=== PATIENT | female | born 1995 | race Hispanic/Latino ===

== ENCOUNTER 2016-11-20 12:00 | Emergency (ER) | payer MEDICAID, OTHER ==
[~2016-11-20] VITALS: Ht 162.6 cm; Wt 63.6 kg
[2016-11-20 12:12] VITALS: BP 109/73; RESP 15; O2SAT 100
--- NOTE | 2016-11-20 12:12 | ED.REPORT ---
HPI-Facial Injury Date of Service Nov 20, 2016 ED Provider: Dr. Roberts A 21 year old female with a history of asthma, depression, and suicidal ideations presents to the ED complaining of swollen throat onset 1 month ago. The patient thinks that it is strep throat but has not seen a doctor to be tested for that. Associated symptoms include pain with eating or drinking. The patient denies any cough or fever. The patient did not take Tylenol, Ibuprofen or any medicines at home to treat her symptoms. She does report using an unspecified "natural" treatment that got rid of white spots that were on her throat. She reports that her sister had an illness that may have been strep throat 1 month ago. The patient reports no pertinent medical history. Nursing Notes Stated Complaint: POSSIBLE STREP THROAT Chief Complaint: ENT & Mouth Nursing Notes Reviewed: Yes Allergies: Coded Allergies: ketorolac tromethamine (Verified Allergy, Intermediate, VOMITING, ORAL FORM, 11/20/16) ORAL FORM MAKES HER VOMIT codeine (Verified Adverse Reaction, Intermediate, SWEATING, NAUSEA, ) propoxyphene napsylate (Verified Adverse Reaction, Intermediate, Nausea, ) No Active Prescriptions or Reported Meds General Time Seen by Provider: 12:12 Chief Complaint Other (Swollen throat) Hx Obtained From: Patient Arrived By: Walk-in Onset Occurred: More than a week ago... (1 month ago) Symptom Duration: Since onset Severity: Current: Moderate Severity: Maximum: Moderate Recent Healthcare: No recent doctor visit Similar Sx Previous: No Past Medical History Past Medical History Depression - hx of suicidal ideations ADD Rh Positive Reports: Asthma Past Surgical History none reported. 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 Constitutional: Denies: Fever Ears / Nose / Throat: Reports: Throat swelling Complete sys rev & neg: except as marked. Respiratory: Denies: Non-productive cough Physical Exam Initial Vital Signs Vital Signs (First) Date Time Temp Pulse Resp B/P Pulse Ox O2 Delivery O2 Flow Rate FiO2 11/20/16 12:12 37.3 85 15 109/73 100 Room Air Initial VS: Reviewed Head / Eyes: Atraumatic, Normocephalic ENT: Airway patent tonsillar hypertrophy and erythema. No uvular deviation. Neck: Full range of motion Neurologic: Oriented X3, Speech NL General/Constitutional: Awake, Alert Respiratory / Chest: Atraumatic, Breath sounds NL, Breath sounds = bilat, No respiratory distress Cardiovascular: Heart rate NL, Regular rhythm, Heart sounds NL Skin: Atraumatic, Color NL Abdomen: Atraumatic Spleen is not enlarged. Back: Atraumatic, Full range of motion Lymphadenitis: Positive: Tenderness present (tender lymphnodes.) Upper Extremity / MS: Atraumatic, Full range of motion Wrist / Hand: Atraumatic, Full range of motion Lower Extremity / Pelvis / MS: Atraumatic, Full range of motion Interpretation & Diagnostics Interpretation & Diagnostics: Strep test is negative. MONO test is negative. Lab Results Interpretation Test 11/20/16 12:34 11/20/16 12:50 Monoscreen Negative (Negative) Re-Eval/Medical Decision Med Decision/Clinical Course Med Decision/Clinical Course: Treated with Bicillin, on the off chance this is infectious. Recommended outpatient follow-up with ENT. Source of Hx: Old records Re-Evaluation/Progress : Time of Eval: 13:08 Re-Evaluation/Progress Note: Rechecked patient, explained test results, diagnosis, and plan for discharge. Patient understands and agrees with the plan. All questions addressed. Counseled Regarding: Diagnosis, Lab results, Need for follow-up, When/why to return to ED Discharge & Departure Impression: Primary Impression: Pharyngitis Disposition: Home Discharge Condition All VS Reviewed: Yes Condition: Improved Patient Instructions: Pharyngitis (ED) Additional Instructions: Your strep throat swab and your mononucleosis test were both negative. However , given the duration of your symptoms your sore throat was treated with an injection of long-acting penicillin. Call the ENT physician in the next 3-4 days if you have no improvement for a follow-up appointment. Also follow-up with your primary care doctor as needed or return to the ER. Referrals: Rebecca Camilo DO (PCP) Gustavo Baker MD Scribe Attestation Portions of this note were transcribed by Tavo Zimmerman. IDr. Roberts personally performed the history, physical exam and medical decision-making; I reviewed and confirmed the accuracy of the information in the transcribed note. Signed by: Sheryl Nuñez, 11/20/2016 1328. copies to: Gustavo Baker MD; Rebecca Camilo Timothy S DO Nov 20, 2016 12:12 Tavo Zimmerman Nov 20, 2016 12:20
[2016-11-20] MEDS ORDERED: AMOX-366 PO (13:58)
== END 2016-11-20 14:06 | disposition home or self-care (01) ==
LOC: SED 12:00
DX: J02.9 Acute pharyngitis, unspecified (principal); J45.909 Unspecified asthma, uncomplicated; F12.10 Cannabis abuse, uncomplicated; Z88.8 Allergy status to other drugs, medicaments and biological substances; Z88.5 Allergy status to narcotic agent

== ENCOUNTER 2016-11-22 21:04 | Emergency (ER) | payer OTHER ==
[~2016-11-22] VITALS: Ht 162.6 cm; Wt 18.2 kg
[~2016-11-22 21:04] MED LIST: AMOX-366 PO
[2016-11-22 21:09] VITALS: BP 127/85; PULSE 117; RESP 24; O2SAT 96
--- NOTE | 2016-11-22 21:52 | ED.REPORT ---
HPI-Abd Pain F Under 40 Date of Service Nov 22, 2016 ED Provider: Amrit Diaz MD A 21 year old female with a history of depression, ADD, and asthma presents to the ED with epigastric abdominal pain onset 1300 this afternoon. Associated symptoms include nausea and vomiting. The patient denies diarrhea, melena, hematemesis, hematochezia, dysuria, or other symptoms. She has no ill contacts. The patient was in the ED two days ago with pharyngitis. Nursing Notes Stated Complaint: SICK Chief Complaint: Female Abdominal Pain Nursing Notes Reviewed: Yes Allergies: Coded Allergies: ketorolac tromethamine (Verified Allergy, Intermediate, VOMITING, ORAL FORM, 11/22/16) ORAL FORM MAKES HER VOMIT codeine (Verified Adverse Reaction, Intermediate, SWEATING, NAUSEA, ) propoxyphene napsylate (Verified Adverse Reaction, Intermediate, Nausea, ) Scheduled Amoxicillin/Clav K 875-125 mg (Augmentin 875-125 mg) 1 Each Tablet 1 TABLET PO BID Omeprazole (Omeprazole) 20 Mg Tablet.dr 20 MG PO BID Scheduled PRN Ondansetron ODT (Ondansetron ODT) 8 Mg Tab.rapdis 8 MG PO QID PRN PRN For Nausea General Time Seen by MD: 21:51 Chief Complaint Abdominal pain Hx Obtained From: Patient Arrived By: Walk-in Sudden in Onset?: Yes Onset Occurred: 5 - 8 hours ago Symptom Duration: Since onset Location: : Epigastric Quality: Painful Severity: Current: Moderate Severity: Maximum: Moderate Associated with: Reports: Nausea, Vomiting, Denies: Diarrhea, Dysuria, Fever, Hematemesis, Hematochezia, Melena Pertinent Negative: Relieved by nothing Recent Healthcare: Recent doctor visit Past Medical History Past Medical History Depression - hx of suicidal ideations ADD Rh Positive Reports: Asthma Past Surgical History none reported. 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 Physical Exam Initial Vital Signs Vital Signs (First) Date Time Temp Pulse Resp B/P Pulse Ox O2 Delivery O2 Flow Rate FiO2 11/22/16 21:09 37.2 117 24 127/85 96 Room Air Initial VS: Reviewed Head / Eyes: Atraumatic, Normocephalic ENT: Conjunctiva normal, No scleral icterus Skin: Warm, Dry, No cyanosis Neurologic: Alert, Oriented, Nonfocal Psychiatric: Mood/affect normal, Behavior normal, Normal thought content General/Constitutional: Awake, Alert Distress / Hydration: Positive: Dehydration mild, Distress mild Behavior: Positive: Tearful Respiratory / Chest: Breath sounds NL, Breath sounds = bilat, No respiratory distress Cardiovascular: Heart rate NL, Regular rhythm, Heart sounds NL Abdomen: Soft Tenderness/Guarding/Rebound: Positive: Tender epigastric Interpretation & Diagnostics URINE DIPSTICK: 1.000 sp gravity 6 pH Trace Leukocyte Esterase Normal Glucose ++ Moderate Ketones Normal Urobilinogen ++ Bilirubin ~50 Nathan/ml URINE TEST: Negative Lab Results Interpretation Result Diagram: 11/22/16214411/22/162144 Test 11/22/16 21:45 11/22/16 23:09 White Blood Count 11.2th/mm3 (3.8-10.1) Red Blood Count 5.23mil/mm3 (3.90-5.20) Hemoglobin 14.2g/dL (12.0-15.6) Hematocrit 42.0% (35.0-46.0) Mean Corpuscular Volume 80.3fL (81-100) Mean Corpuscular Hemoglobin 27.2pg (27.0-35.0) Mean Corpuscular Hemoglobin Concent 33.8% (32.0-37.0) Red Cell Distribution Width 13.3% (12.3-15.4) Platelet Count 365bil/L (150-400) Neutrophils (%) (Auto) 85.8% (40-74) Lymphocytes (%) (Auto) 6.9% (14-46) Monocytes (%) (Auto) 6.0% (4-12) Eosinophils (%) (Auto) 0.5% (0-5) Basophils (%) (Auto) 0.4% (0-3) Sodium Level 138mEq/L (134-144) Potassium Level 4.0mEq/L (3.5-5.2) Chloride Level 96mEq/L (97-108) Carbon Dioxide Level 19mmol/L (18-29) Blood Urea Nitrogen 15mg/dL (6-20) Creatinine 0.80mg/dL (0.57-1.00) Estimat Glomerular Filtration Rate 131mL/min (>59) Glucose Level 132mg/dL (60-99) Calcium Level 9.7mg/dL (8.5-10.1) Magnesium Level 1.7mg/dL (1.6-2.6) Total Bilirubin 0.5mg/dL (0.0-1.2) Aspartate Amino Transf (AST/SGOT) 18U/L (0-50) Alanine Aminotransferase (ALT/SGPT) 9U/L (0-32) Alkaline Phosphatase 104U/L (25-150) Total Protein 9.2g/dL (6.4-8.4) Albumin 4.8g/dL (3.4-5.0) Lipase 21U/L (13-60) Hold Horowitz Top Tube Received (Received) Urine Color Yellow (YELLOW) Urine Appearance Clear (CLEAR,HAZY) Urine pH 6.0 (5.0-8.0) Urine Specific [place] 1.020 (1.003-1.035) Urine Protein Negativemg/dL (NEG,TRACE) Urine Glucose (UA) Negativemg/dL (NEGATIVE) Urine Ketones 40mg/dL (NEGATIVE) Urine Occult Blood Moderate (NEGATIVE) Urine Nitrite Negative (NEGATIVE) Urine Bilirubin Negative (NEGATIVE) Urine Urobilinogen Normalmg/dL (NORMAL) Urine Leukocyte Esterase Negative (NEGATIVE) Urine RBC 0-2/hpf (0-2) Urine WBC 0-5/hpf (0-5) Urine Epithelial Cells Moderate/hpf (NONE-MOD) Urine Crystals Amorphous urates (NONE Urine Bacteria Few/hpf (NONE-FEW) Urine Hyaline Casts None/lpf (NONE) Urine Granular Casts None seen (NONE SEEN) Urine Waxy Casts None seen (NONE SEEN) Urine Red Blood Cell Casts None seen (NONE SEEN) Urine White Blood Cell Casts None seen (NONE SEEN) Urine Mucus Present (None Seen) Urine Trichomonas None seen (NONE SEEN) Urine Yeast None (NONE SEEN) Urinalysis Comment None Urine Culture Reflexed Not indicated Re-Eval/Medical Decision Med Decision/Clinical Course Med Decision/Clinical Course: 21-year-old presents with epigastric pain and vomiting. Much improved after fluids and meds here. No indication of pancreatitis or cholecystitis by lab. Home with omeprazole and ondansetron. Re-Evaluation/Progress : Time of Eval: 23:20 )( Re-Eval Abdomen: Soft, Non-tender Patient Status: Condition improved Re-Evaluation/Progress Note: Discussed with patient lab results, diagnosis, and plan for discharge. Follow-up and return to the ER instructions given. Patient agrees with plan for care and all questions were addressed. Counseled Regarding: Diagnosis, Lab results, Need for follow-up, When/why to return to ED Discharge & Departure Shift Change Sign-Out Response to Therapy: Improved Primary Impression: Gastritis Disposition: Home Discharge Condition All VS Reviewed: Yes Condition: Improved Patient Instructions: Acute Nausea and Vomiting (ED), Gastritis (ED) Additional Instructions: Prilosec twice daily for ten days then daily after that for the rest of the month. Follow-up with your doctor in the office. Return if any immediate issues. Zofran up to four times daily if needed for nausea. Maalox or Mylanta if needed for heartburn. Referrals: Rebecca Camilo DO (PCP) Sheryl Attestation Portions of this note were transcribed by Jaleesa Rivera. I, Dr. Diaz, personally performed the history, physical exam, and medical decision-making; I reviewed and confirmed the accuracy of the information in the transcribed note. Signed by: Sheryl West, 11/23/2016, 01:30 copies to: Rebecca Camilo Christopher W MD Nov 22, 2016 21:52 JALEESA RIVERA Nov 22, 2016 21:59
[2016-11-22] MEDS ORDERED: 0.9% Sodium Chloride 1,000 ML IV ONE ×2 (21:54→21:55)
[2016-11-22] MEDS ORDERED: Pantoprazole 4 mg/mL 10 mL Inj IVPUSH ONE (21:55)
[2016-11-22] MEDS ORDERED: ProchlorPERazine 5 mg/mL 2 mL Inj IVPUSH ONE (21:55)
[2016-11-22] MEDS ORDERED: Ondansetron 2 mg/mL 2 mL Inj IVPUSH ONE (21:55)
[2016-11-22 21:58] LABS: BASOPHILS % (AUTO) 0.4 % (0-3); EOSINOPHILS % (AUTO) 0.5 % (0-5); Mean Corpuscular Hemoglobin 27.2 pg (27.0-35.0); Mean Corpuscular Volume 80.3 fL (81-100); NEUTROPHILS % (AUTO) 85.8 % (40-74); Platelet Count 365 bil/L (150-400)
[2016-11-22 22:29] LABS: Magnesium 1.7 mg/dL (1.6-2.6)
[2016-11-22 23:15] LABS: COLOR,URINE YELLOW (YELLOW)
[2016-11-22 23:16] LABS: APPEARANCE,URINE CLEAR (CLEAR,HAZY); OCCULT BLOOD,URINE MODERATE (NEGATIVE); UROBILINOGEN,URINE NORMAL (NORMAL)
[2016-11-22] MEDS ORDERED: OMEP20TA86 PO (23:24)
[2016-11-22] MEDS ORDERED: ONDA8TAB10 PO (23:24)
[2016-11-22 23:40] VITALS: BP 107/60; PULSE 120; RESP 16; O2SAT 100
== END 2016-11-22 23:34 | disposition home or self-care (01) ==
LOC: SED 21:04
DX: K29.70 Gastritis, unspecified, without bleeding (principal); J45.909 Unspecified asthma, uncomplicated; Z88.5 Allergy status to narcotic agent; Z88.8 Allergy status to other drugs, medicaments and biological substances
CPT/HCPCS: 36415; 80053; 81000; 81025; 83690; 83735; 85025; 96361; 96374; 96375; 99284; J0780; J1200; J2405; J7030

== ENCOUNTER 2017-01-02 20:21 | Emergency (ER) | payer OTHER ==
[~2017-01-02] VITALS: Ht 160 cm; Wt 63.6 kg
[~2017-01-02 20:21] MED LIST changes: +OMEP20TA86 PO; +ONDA8TAB10 PO
[2017-01-02 20:28] VITALS: BP 104/72; PULSE 79; RESP 18
--- NOTE | 2017-01-02 21:16 | ED.REPORT ---
HPI-Abd Pain F Under 40 Date of Service Jan 02, 2017 ED Provider: Sherwin Wiggins DO A 21 year old female with a history of depression and asthma presents to the ED complaining of abdominal pain. The pt was diagnosed with pharyngitis several days ago and prescribed medications. These medications have not relieved her symptoms. She is now experiencing continuing sore throat, diarrhea and LUQ abdominal pain. Nursing Notes Stated Complaint: SORE THROAT, ABDOMINAL PAIN Chief Complaint: Female Abdominal Pain Nursing Notes Reviewed: Yes Allergies: Coded Allergies: ketorolac tromethamine (Verified Allergy, Intermediate, VOMITING, ORAL FORM, 11/22/16) ORAL FORM MAKES HER VOMIT codeine (Verified Adverse Reaction, Intermediate, SWEATING, NAUSEA, ) propoxyphene napsylate (Verified Adverse Reaction, Intermediate, Nausea, ) General Time Seen by MD: 21:16 Chief Complaint Abdominal pain Hx Obtained From: Patient Arrived By: Walk-in Sudden in Onset?: No Symptom Duration: Since onset Recent Healthcare: No recent hospitalization, Recent doctor visit Similar Sx Previous: No Past Medical History Past Medical History Depression - hx of suicidal ideations ADD Rh Positive Reports: Asthma Past Surgical History none reported. 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 Ears / Nose / Throat: Reports: Sore throat Physical Exam Initial Vital Signs Vital Signs (First) Date Time Temp Pulse Resp B/P Pulse Ox O2 Delivery O2 Flow Rate FiO2 01/02/17 20:28 36.6 79 18 104/72 Room Air 01/03/17 00:07 98 Initial VS: Reviewed General/Constitutional: Awake, Alert Respiratory / Chest: Atraumatic, Breath sounds NL, Breath sounds = bilat, No respiratory distress Cardiovascular: Heart rate NL, Regular rhythm, Heart sounds NL Abdomen: Atraumatic, Soft mild LUQ tenderness Back: Atraumatic, Full range of motion Head / Eyes: Atraumatic, Normocephalic, PERRL, EOMI ENT: Atraumatic, Airway patent, Mucous membranes moist Skin: Atraumatic, Color NL, No rash, Warm, Dry Neurologic: Oriented X3, Speech NL, No motor deficits, No sensory deficits Neck: Atraumatic, Supple, Full range of motion anterior cervical lymphadenopathy Upper Extremity / MS: Atraumatic, Full range of motion Lower Extremity / Pelvis / MS: Atraumatic, Full range of motion Psychiatric: Affect NL, Mood NL Interpretation & Diagnostics Lab Results Interpretation Result Diagram: 01/02/17212901/02/[id number] Test 01/02/17 21:30 01/02/17 22:00 White Blood Count 6.8th/mm3 (3.8-10.1) Red Blood Count 4.45mil/mm3 (3.90-5.20) Hemoglobin 11.9g/dL (12.0-15.6) Hematocrit 37.1% (35.0-46.0) Mean Corpuscular Volume 83.4fL (81-100) Mean Corpuscular Hemoglobin 26.7pg (27.0-35.0) Mean Corpuscular Hemoglobin Concent 32.1% (32.0-37.0) Red Cell Distribution Width 13.8% (12.3-15.4) Platelet Count 248bil/L (150-400) Neutrophils (%) (Auto) 56.0% (40-74) Lymphocytes (%) (Auto) 36.3% (14-46) Monocytes (%) (Auto) 6.6% (4-12) Eosinophils (%) (Auto) 0.7% (0-5) Basophils (%) (Auto) 0.3% (0-3) Sodium Level 139mEq/L (134-144) Potassium Level 3.9mEq/L (3.5-5.2) Chloride Level 100mEq/L (97-108) Carbon Dioxide Level 25mmol/L (18-29) Blood Urea Nitrogen 14mg/dL (6-20) Creatinine 0.80mg/dL (0.57-1.00) Estimat Glomerular Filtration Rate 131mL/min (>59) Glucose Level 81mg/dL (60-99) Calcium Level 9.1mg/dL (8.5-10.1) Magnesium Level 2.3mg/dL (1.6-2.6) Total Bilirubin 0.3mg/dL (0.0-1.2) Aspartate Amino Transf (AST/SGOT) 17U/L (0-50) Alanine Aminotransferase (ALT/SGPT) 10U/L (0-32) Alkaline Phosphatase 59U/L (25-150) Total Protein 7.4g/dL (6.4-8.4) Albumin 4.4g/dL (3.4-5.0) Lipase 29U/L (13-60) Hold Horowitz Top Tube Received (Received) Monoscreen Negative (Negative) Urine Color Yellow (YELLOW) Urine Appearance Hazy (CLEAR,HAZY) Urine pH 8.0 (5.0-8.0) Urine Specific [place] 1.010 (1.003-1.035) Urine Protein Negativemg/dL (NEG,TRACE) Urine Glucose (UA) Negativemg/dL (NEGATIVE) Urine Ketones Negativemg/dL (NEGATIVE) Urine Occult Blood Negative (NEGATIVE) Urine Nitrite Negative (NEGATIVE) Urine Bilirubin Negative (NEGATIVE) Urine Urobilinogen Normalmg/dL (NORMAL) Urine Leukocyte Esterase Negative (NEGATIVE) Urine RBC 0-2/hpf (0-2) Urine WBC 0-5/hpf (0-5) Urine Epithelial Cells Moderate/hpf (NONE-MOD) Urine Crystals None seen (NONE SEEN) Urine Bacteria Few/hpf (NONE-FEW) Urine Hyaline Casts None/lpf (NONE) Urine Granular Casts None seen (NONE SEEN) Urine Waxy Casts None seen (NONE SEEN) Urine Red Blood Cell Casts None seen (NONE SEEN) Urine White Blood Cell Casts None seen (NONE SEEN) Urine Mucus Present (None Seen) Urine Trichomonas None seen (NONE SEEN) Urine Yeast None (NONE SEEN) Urinalysis Comment None Urine Culture Reflexed Not indicated Lab Results Interpretation: urine negative Re-Eval/Medical Decision Source of Hx: Old records Re-Evaluation/Progress #1: Time of Eval: 22:24 Re-Evaluation/Progress Note: Pt rechecked, who is comfortable. She is informed of her lab results and the plan for further treatment. Re-Evaluation/Progress #2: Time of Eval: 23:48 Patient Status: Condition improved Re-Evaluation/Progress Note: Pt rechecked, who is resting. The diagnosis and plan for discharge are discussed. The pt understands and agrees with the plan. All questions are addressed at this time. Counseled Regarding: Diagnosis, Lab results, Need for follow-up, When/why to return to ED Discharge & Departure Primary Impression: Pharyngitis Pharyngitis/tonsillitis etiology: unspecified etiology Qualified Code: J02.9 - Acute pharyngitis, unspecified Additional Impressions: Abdominal pain Abdominal location: unspecified location Qualified Code: R10.9 - Unspecified abdominal pain Diarrhea Diarrhea type: unspecified type Qualified Code: R19.7 - Diarrhea, unspecified Disposition: Home Discharge Condition All VS Reviewed: Yes Condition: Stable Patient Instructions: Acute Abdominal Pain (ED), Acute Diarrhea (ED), Pharyngitis (ED) Additional Instructions: I suspect that you are suffering from a viral illness. Take Tylenol and Motrin as directed for pain. Drink plenty of liquids to stay hydrated. Your labs were reassuring. A throat culture will be available by mid next week and this should be followed up. Call your primary care physician Wednesday morning to arrange a follow up appointment next week. Return to the emergency department if you develop any new or worsening symptoms. Referrals: Rebecca Camilo DO (PCP) Chanellibfabby Attestation Portions of this note were transcribed by Cata Frances. I, Dr. Wiggins personally performed the history, physical exam and medical decision-making; I reviewed and confirmed the accuracy of the information in the transcribed note. Signed by: Sheryl Lee, 01/02/17 and 0849. copies to: Rebecca Camilo Todd P DO Jan 02, 2017 21:16 CATA FRANCES Jan 02, 2017 21:55
[2017-01-02 21:35] LABS: BASOPHILS % (AUTO) 0.3 % (0-3); EOSINOPHILS % (AUTO) 0.7 % (0-5); MONOCYTES % (AUTO) 6.6 % (4-12); Mean Corpuscular Hemoglobin 26.7 pg (27.0-35.0); Mean Corpuscular Volume 83.4 fL (81-100); Platelet Count 248 bil/L (150-400)
[2017-01-02 21:59] LABS: Magnesium 2.3 mg/dL (1.6-2.6)
[2017-01-02 22:21] LABS: APPEARANCE,URINE HAZY (CLEAR,HAZY); COLOR,URINE YELLOW (YELLOW); OCCULT BLOOD,URINE NEGATIVE (NEGATIVE); UROBILINOGEN,URINE NORMAL (NORMAL)
[2017-01-02] MEDS ORDERED: HYDROcodone-APAP 5-325 mg Tablet PO ONE (22:25)
[2017-01-02] MEDS ORDERED: 0.9% Sodium Chloride 1,000 ML IV ONE (22:25)
[2017-01-02] MEDS ORDERED: Dexamethasone Inj 10 MG in 0.9% Sodium Chloride-Pha MIX 50 ML IV ONE (22:25)
[2017-01-02] MEDS ORDERED: PHA MIX IV ONE (22:35)
[2017-01-02] MEDS ORDERED: DEXTROSE 5% IV ONE (22:35)
[2017-01-02] MEDS ORDERED: DEXAMETHASONE IV ONE (22:35)
[2017-01-03 00:07] VITALS: BP 108/62; PULSE 72; RESP 16; O2SAT 98
[2017-01-03] MEDS ORDERED: Sodium Chloride LOK Flush 10 mL Syringe IVFLUSH SCH (00:30)
== END 2017-01-03 00:08 | disposition home or self-care (01) ==
LOC: SED 20:21
DX: J02.9 Acute pharyngitis, unspecified (principal); R10.12 Left upper quadrant pain; R19.7 Diarrhea, unspecified; J45.909 Unspecified asthma, uncomplicated; Z88.8 Allergy status to other drugs, medicaments and biological substances; Z88.5 Allergy status to narcotic agent
CPT/HCPCS: 36415; 80053; 81000; 81025; 83690; 83735; 85025; 86308; 87081; 87880; 96361; 96374; 99285; J1100; J7030

== ENCOUNTER 2017-01-24 21:20 | Emergency (ER) | payer OTHER ==
[~2017-01-24] VITALS: Ht 162.6 cm; Wt 60.0 kg
[2017-01-24 21:33] VITALS: BP 147/82; RESP 16; O2SAT 97
--- NOTE | 2017-01-24 21:51 | ED.REPORT ---
HPI-Sore Throat ONLY HPI/PE done January 24, 2017 ED Provider: Sherwin Wiggins DO Pt is a healthy 21 year old female who presents to the ED with complaints of a sore throat that started several days ago. She additionally reports left sided ear pain. She denies any fevers, chills, chest pain, cough, shortness of breath , nausea, vomiting or any other symptoms. She reports that she was recentely on antibiotics, but has had no alleviation of her symptoms. Nursing Notes Stated Complaint: THROAT PAIN Chief Complaint: ENT & Mouth Nursing Notes Reviewed: Yes Allergies: Coded Allergies: ketorolac tromethamine (Verified Allergy, Intermediate, VOMITING, ORAL FORM, 01/24/17) ORAL FORM MAKES HER VOMIT codeine (Verified Adverse Reaction, Intermediate, SWEATING, NAUSEA, ) propoxyphene napsylate (Verified Adverse Reaction, Intermediate, Nausea, ) General Time Seen by MD: 21:50 Chief Complaint Sore throat Hx Obtained From: Patient Arrived By: Walk-in Onset Occurred: 3 days ago Symptom Duration: Since onset Quality: Painful Severity: Current: Mild Severity: Maximum: Mild Context: Immunization Status General: All up to date Similar Sx Previous: Yes Past Medical History Past Medical History Depression - hx of suicidal ideations ADD Rh Positive Reports: Asthma Past Surgical History none reported. 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 Physical Exam Initial Vital Signs Vital Signs (First) Date Time Temp Pulse Resp B/P Pulse Ox O2 Delivery O2 Flow Rate FiO2 01/24/17 21:33 36.8 84 16 147/82 97 Room Air Initial VS: Reviewed Head / Eyes: Atraumatic, Normocephalic, PERRL Respiratory: Breath sounds normal, Clear to auscultation, No respiratory distress Cardiovascular: Regular rate & rhythm, Heart sounds normal, Intact distal pulses Abdomen / GI: Soft, Non-tender, No guarding, No rebound, No distention Skin: Warm, Dry, No cyanosis Neurologic: Alert, Oriented, Nonfocal Psychiatric: Mood/affect normal, Behavior normal, Normal thought content General/Constitutional: Awake, Alert, Well appearing, Cooperative ENT: Atraumatic, Airway patent, No peritonsillar abscess Pharynx / Tonsils / Uvula: Positive: Pharyngeal erythema Left Ear / Mastoid: Positive: Tympanic membrane bulging, Tympanic membrane red Neck: Atraumatic, Supple, No meningismus Re-Eval/Medical Decision Source of Hx: Old records Re-Evaluation/Progress : Time of Eval: 22:22 Re-Evaluation/Progress Note: Pt is rechecked and informed of her diagnosis and the plan to discharge her at this time. She understands and agrees, all questions are addressed. Counseled Regarding: Diagnosis, Lab results, When/why to return to ED Discharge & Departure Primary Impression: Pharyngitis Pharyngitis/tonsillitis etiology: unspecified etiology Qualified Code: J02.9 - Acute pharyngitis, unspecified Additional Impression: Left otitis media Chronicity: acute Recurrence: not specified as recurrent Disposition: Home Discharge Condition All VS Reviewed: Yes Condition: Stable Patient Instructions: Pharyngitis (ED), Otitis Media (ED) Additional Instructions: It appears you have a left sided ear infection and pharyngitis. Take the antibiotic (Augmentin 2x/day for 10 days) as prescribed, finish the entire course of these even if your symptoms resolve. [place] every 6 hours for break through pain. NOTE: this is a narcotic pain medication, and may cause drowsiness. Do not drink alcohol or drive while on this medication. Increase your hydration and rest. Take ibuprofen as needed to alleviate your pain. Follow up with your primary care provider next week if you are having continued symptoms. Return to the emergency department if you have any worsening or concerning symptoms. Make an appointment with ENT to further address your ear pain. Referrals: Rebecca Camilo DO (PCP) Arjun Trammell MD Scribe Attestation Portions of this note were transcribed by Lissette Mojica. IDr. Wiggins personally performed the history, physical exam and medical decision-making; I reviewed and confirmed the accuracy of the information in the transcribed note. Signed by: Sheryl Lowery, 01/24/2017 [id number] copies to: Arjun Trammell MD; Rebecca Camilo Todd P DO January 24, 2017 21:51 ROQUE MOJICA January 24, 2017 21:55
[2017-01-24] MEDS ORDERED: _HYDROcodone/APAP 5-325 mg Tablet PO PRN (22:40)
[2017-01-24] MEDS ORDERED: Amoxicillin-Clav 875-125 mg Tablet PO ONE (22:40)
[2017-01-24] MEDS ORDERED: Dexamethasone 20 mg/2 mL Oral Solution PO ONE (22:40)
== END 2017-01-24 23:27 | disposition home or self-care (01) ==
LOC: SED 21:20
DX: J02.9 Acute pharyngitis, unspecified (principal); H66.92 Otitis media, unspecified, left ear; J45.909 Unspecified asthma, uncomplicated; F32.9 Major depressive disorder, single episode, unspecified; Z88.6 Allergy status to analgesic agent; Z88.5 Allergy status to narcotic agent